=== PATIENT | male | born 1960 | race Two or more races ===

== ENCOUNTER 2016-11-01 21:44 | Emergency (ER) | payer MEDICAID ==
[~2016-11-01] VITALS: Ht 165.1 cm; Wt 65.8 kg
[2016-11-01 21:44] VITALS: BP 106/82
--- NOTE | 2016-11-01 21:53 | Emergency Room Report ---
History of Present Illness General Chief Complaint: Abnormal Labs Source: Patient, EMS Present Illness HPI Is a 56-year-old male with no past medical history. He has not seen a Dr. for many decades. He presents with chief complaint of weakness and dry mouth and shortness of breath. No nausea no vomiting. Been urinating frequently. Also with weight loss. Worse with exertion. Per family, he hasn't been eating solid for one week because of pain in his throat. No chest pain. Allergies: Coded Allergies: No Known Allergies (Unverified , 11/01/16) Patient History Past Medical History: none, see triage record, old chart reviewed Past Surgical History: none Pertinent Family History: none Social History: Denies: smoking Immunizations: other Reviewed Nursing Documentation: PMH: Agreed, PSxH: Agreed Nursing Documentation-PMH Past Medical History: No Stated History Review of Systems Constitutional: Reports: malaise, weakness Eye: Denies: blurred vision, eye pain ENT: Denies: ear pain, nose congestion, throat swelling Respiratory: Denies: cough, shortness of breath Cardiovascular: Denies: chest pain, palpitations Gastrointestinal: Denies: abdominal pain, diarrhea, nausea, vomiting Musculoskeletal: Denies: back pain, joint pain Skin: Denies: rash Neurological: Denies: headache, numbness Endocrine: Reports: increased thirst, increased urine, unexplained weight loss Hematologic/Lymphatic: Denies: easy bruising All Other Systems: negative except mentioned in HPI Physical Exam Vital Signs Date Time Temp Pulse Resp B/P Pulse Ox O2 Delivery O2 Flow Rate FiO2 11/01/16 21:35 99.1 106 20 106/82 98 Room Air vitals with tachycardia Sp02 EP Interpretation: reviewed, normal General Appearance: alert, moderate distress, thin Head: normocephalic, atraumatic Eyes: bilateral eye EOMI, bilateral eye PERRL ENT: hearing grossly normal, normal pharynx, dry mucus membranes, other - thrush Neck: full range of motion, supple, no meningismus Respiratory: chest non-tender, lungs clear, normal breath sounds Cardiovascular #1: regular rate, rhythm, no murmur Gastrointestinal: normal bowel sounds, non tender, no mass, no organomegaly, no bruit, non-distended Musculoskeletal: back normal, gait/station normal, normal range of motion Psychiatric: mood/affect normal Skin: warm/dry Procedures Critical Care Time Critical Care Time Critical care is mandated in this patient who presented with neck abscess and DKA. Patient require my urgent intervention to attenuate the risks of metabolic collapse which may lead to cardiovascular collapse and . Critical care time is 75 minutes excluding any reportable procedure. Critical care time included evaluation, multiple reevaluation, looking at old charts, interpreting laboratory and diagnostic data, discussing case with patient and family and consultants, and charting. Medical Decision Making Diagnostic Impression: Primary Impression: DKA (diabetic ketoacidoses) Qualified Codes: E13.10 - Other specified diabetes mellitus with ketoacidosis without coma Additional Impressions: Abscess of neck Dehydration, severe Proteinuria Qualified Codes: R80.9 - Proteinuria, unspecified ER Course Patient presents with severe acidosis. This is a combination of infection, dehydration and DKA. D5 solution started along with insulin drip. I also gave him Zosyn for infection. Because of the infection/abscess to the prevertebral space, I will attempt to transfer this patient to [facility] for higher level of care. Laboratory Tests Test 11/01/16 21:55 11/01/16 22:10 11/01/16 22:59 White Blood Count 27.3 K/UL (4.8-10.8) *H Red Blood Count 4.06 M/UL (4.70-6.10) L Hemoglobin 12.6 G/DL (14.2-18.0) L Hematocrit 37.0 % (42.0-52.0) L Mean Corpuscular Volume 91 FL (80-99) Mean Corpuscular Hemoglobin 31.1 PG (27.0-31.0) H Mean Corpuscular Hemoglobin Concent 34.1 G/DL (32.0-36.0) Red Cell Distribution Width 11.8 % (11.6-14.8) Platelet Count 553 K/UL (150-450) H Mean Platelet Volume 5.5 FL (6.5-10.1) L Neutrophils (%) (Auto) % (45.0-75.0) Lymphocytes (%) (Auto) % (20.0-45.0) Monocytes (%) (Auto) % (1.0-10.0) Eosinophils (%) (Auto) % (0.0-3.0) Basophils (%) (Auto) % (0.0-2.0) Differential Total Cells Counted 100 Neutrophils % (Manual) 87 % (45-75) H Lymphocytes % (Manual) 4 % (20-45) L Monocytes % (Manual) 4 % (1-10) Eosinophils % (Manual) 0 % (0-3) Basophils % (Manual) 0 % (0-2) Band Neutrophils 5 % (0-8) Toxic Granulation 1+ Platelet Estimate Increased H Platelet Morphology Normal Red Blood Cell Morphology Normal Urine Color Pale yellow Urine Appearance Slightly cloudy Urine pH 5 (4.5-8.0) Urine Specific [place] 1.020 (1.005-1.035) Urine Protein 2+ (NEGATIVE) H Urine Glucose (UA) 4+ (NEGATIVE) H Urine Ketones 4+ (NEGATIVE) H Urine Occult Blood 3+ (NEGATIVE) H Urine Nitrite Negative (NEGATIVE) Urine Bilirubin Negative (NEGATIVE) Urine Urobilinogen Normal MG/DL (0.0-1.0) Urine Leukocyte Esterase Negative (NEGATIVE) Urine RBC 0-2 /HPF (0 - 0) H Urine WBC 0-2 /HPF (0 - 0) Urine Squamous Epithelial Cells None /LPF (NONE/OCC) Urine Bacteria Few /HPF (NONE) Sodium Level 125 mEQ/L (135-145) L Potassium Level 3.6 mEQ/L (3.4-4.9) Chloride Level 89 mEQ/L (98-107) L Carbon Dioxide Level < 6 mEQ/L (20-30) *L Anion Gap 30 (5-15) H Blood Urea Nitrogen 12 mg/dL (7-23) Creatinine 1.0 mg/dL (0.7-1.2) Estimat Glomerular Filtration Rate > 60 mL/min (>60) Glucose Level 345 mg/dL (74-106) H Calcium Level 8.5 mg/dL (8.6-10.2) L Total Bilirubin 0.5 mg/dL (0.0-1.2) Aspartate Amino Transf (AST/SGOT) 12 U/L (5-40) Alanine Aminotransferase (ALT/SGPT) 8 U/L (3-41) Alkaline Phosphatase 131 U/L (40-129) H Troponin I < 0.30 ng/mL (<=0.30) Total Protein 8.3 g/dL (6.6-8.7) Albumin 3.1 g/dL (3.5-5.2) L Globulin 5.2 g/dL Albumin/Globulin Ratio 0.5 (1.0-2.7) L Urine Opiates Screen Negative (NEGATIVE) Urine Barbiturates Screen Negative (NEGATIVE) Phencyclidine (PCP) Screen Negative (NEGATIVE) Urine Amphetamines Screen Negative (NEGATIVE) Urine Benzodiazepines Screen Negative (NEGATIVE) Urine Cocaine Screen Negative (NEGATIVE) Urine Marijuana (THC) Screen Negative (NEGATIVE) HIV (1&2) Antibody Rapid Negative (NEGATIVE) Arterial Blood pH 7.090 (7.350-7.450) Arterial Blood Partial Pressure CO2 10.5 mmHg (35.0-45.0) *L Arterial Blood Partial Pressure O2 121.2 mmHg (75.0-100.0) H Arterial Blood HCO3 Pending Arterial Blood Oxygen Saturation 97.0 % (92.0-98.0) Arterial Blood Base Excess Pending [place] Test Positive Lab Results Impression labs with leukocytosis and severe acidosis EKG Diagnostic Results Rate: tachycardiac Rhythm: NSR ST Segments: no acute changes Rhythm Strip Diag. Results Rhythm Strip Time: 00:24 EP Interpretation: yes Rate: 94 Rhythm: NSR, no PVC's, no ectopy Chest X-Ray Diagnostic Results Chest X-Ray Diagnostic Results : Chest X-Ray Ordered: Yes # of Views/Limited/Complete: 1 View Indication: Shortness of Breath EP Interpretation: Yes Interpretation: no consolidation, no effusion, no pneumothorax, no acute cardiopulmonary disease Impression: No acute disease Interpreting ER Provider: Electronically signed by Zia Grewal MD CT/MRI/US Diagnostic Results CT/MRI/US Diagnostic Results : Imaging Test Ordered: CT neck Impression Read by radiologist. 4 point 2 x 2 by 8.3 cm abscess seen in the prevertebral space versus retropharyngeal space. There is edema. Airway is patent. There appears to be bony erosion of the anterior aspect of T5 and T6. Last Vital Signs Date Time Temp Pulse Resp B/P Pulse Ox O2 Delivery O2 Flow Rate FiO2 11/01/16 21:35 99.1 106 20 106/82 98 Room Air Status: improved Disposition: XFER SHT-TRM HOSP Condition: Critical ZIA GREWAL M.D. Nov 01, 2016 21:53
[2016-11-01] MEDS ORDERED: Sodium Bicarbonate 50ml Carp ONE (22:09)
[2016-11-01 22:13] LABS: MEAN CORPUSCULAR HEMOGLOBIN 31.1 PG (27.0-31.0); MEAN CORPUSCULAR HGB CONC 34.1 G/DL (32.0-36.0); MEAN CORPUSCULAR VOLUME 91 FL (80-99); MEAN PLATELET VOLUME 5.5 FL (6.5-10.1); PLATELET COUNT 553 K/UL (150-450); RED BLOOD COUNT 4.06 M/UL (4.70-6.10); RED CELL DISTRIBUTION WIDTH 11.8 % (11.6-14.8)
[2016-11-01 22:15] LABS: APPEARANCE,URINE SLIGHTLY CLOUDY; KETONES,URINE 4+ (NEGATIVE); LEUKOCYTE ESTERASE ,URINE NEGATIVE (NEGATIVE); NITRITE,URINE NEGATIVE (NEGATIVE); PH,URINE 5 (4.5-8.0); PROTEIN,URINE 2+ (NEGATIVE); UROBILINOGEN,URINE NORMAL MG/DL (0.0-1.0)
[2016-11-01 22:18] LABS: WHITE BLOOD COUNT 27.3 K/UL (4.8-10.8)
[2016-11-01 22:22] LABS: BACTERIA,URINE FEW /HPF; RBC,URINE 0-2 /HPF (0 - 0); WBC,URINE 0-2 /HPF (0 - 0)
[2016-11-01 22:38] LABS: TROPONIN I < 0.30 ng/mL (<=0.30)
[2016-11-01 22:39] LABS: ALANINE AMINOTRANSFERASE 8 U/L (3-41); ALBUMIN/GLOBULIN RATIO 0.5 (1.0-2.7); ASPARTATE AMINO TRANSFERASE 12 U/L (5-40); CALCIUM 8.5 mg/dL (8.6-10.2); CHLORIDE 89 mEQ/L (98-107); GLOMERULAR FILTRATION RATE > 60 mL/min (>60); HEMOLYSIS 3; POTASSIUM 3.6 mEQ/L (3.4-4.9); SODIUM 125 mEQ/L (135-145); TOTAL PROTEIN 8.3 g/dL (6.6-8.7)
[2016-11-01 22:44] LABS: ANION GAP 30 (5-15)
[2016-11-01 22:51] LABS: CARBON DIOXIDE < 6 mEQ/L (20-30)
[2016-11-01] MEDS ORDERED: D5 1/2NS w/KCl 20mEq 1,000 ML IV SCH (23:00)
[2016-11-01 23:17] LABS: BAND NEUTROPHILS % (MANUAL) 5 % (0-8); LYMPHOCYTES % (MANUAL) 4 % (20-45); NEUTROPHILS % (MANUAL) 87 % (45-75); TOTAL CELLS COUNTED 100
[2016-11-01 23:18] LABS: PLATELET MORPHOLOGY NORMAL
[2016-11-01 23:19] LABS: BASOPHILS % (MANUAL) 0 % (0-2); EOSINOPHILS % (MANUAL) 0 % (0-3); PLATELET ESTIMATE INCREASED; TOXIC GRANULATION 1+
[2016-11-01 23:44] VITALS: BP 128/86
[2016-11-01 23:46] LABS: ABG PCO2 10.5 mmHg (35.0-45.0)
[2016-11-01 23:48] LABS: ABG ALLEN TEST POSITIVE
[2016-11-01] MEDS ORDERED: NKM (23:48)
[2016-11-02] VITALS (15 sets, daily range): BP systolic 92–135; BP diastolic 59–82
[2016-11-02] MEDS ORDERED: Zosyn 3.375gm inj ONE ×2 (00:04→14:49)
[2016-11-02] MEDS ORDERED: Ketorolac 30mg Inj ONE (00:05)
[2016-11-02] MEDS ORDERED: Ketorolac 30mg Inj IV ONE (00:15)
[2016-11-02] MEDS ORDERED: Cephalexin 500mg cap ORAL ONE (02:00)
[2016-11-02 03:15] LABS: CALCIUM 7.9 mg/dL (8.6-10.2); CHLORIDE 102 mEQ/L (98-107); CREATININE 0.7 mg/dL (0.7-1.2); GLOMERULAR FILTRATION RATE > 60 mL/min (>60); HEMOLYSIS 50; POTASSIUM 3.2 mEQ/L (3.4-4.9); SODIUM 135 mEQ/L (135-145)
[2016-11-02 03:18] LABS: ANION GAP 23 (5-15); CARBON DIOXIDE 10 mEQ/L (20-30)
[2016-11-02] MEDS ORDERED: Vancomycin 1 GM in NS 275 ML IVPB ONE (04:00)
[2016-11-02] MEDS ORDERED: Vancomycin 1gm inj IVPB ONE (04:05)
[2016-11-02 05:41] LABS: ANION GAP 20 (5-15); CALCIUM 7.8 mg/dL (8.6-10.2); CARBON DIOXIDE 11 mEQ/L (20-30); CHLORIDE 104 mEQ/L (98-107); CREATININE 0.7 mg/dL (0.7-1.2); GLOMERULAR FILTRATION RATE > 60 mL/min (>60); HEMOLYSIS 0; SODIUM 135 mEQ/L (135-145)
[2016-11-02 05:47] LABS: POTASSIUM 2.7 mEQ/L (3.4-4.9)
--- NOTE | 2016-11-02 08:49 | Diagnostic Imaging Report ---
Indication: PAIN Technique: IV administration nonionic contrast Spiral acquisitions obtained through the neck Multiplanar reconstructions were generated. Total dose length product 451 mGycm. CTDIvol(s) 17 mGy. Radiation dose was minimized using automated exposure control Comparison: None Findings: Large complex multiloculated area of low attenuation is seen anterior to the cervical spine. This is primarily in the midline at the level of the upper cervical spine, to the left of midline at the level of the lower cervical and upper thoracic spine. This begins at the level of the lower nasopharynx, extends caudad into the upper mediastinum, terminating just below the thoracic inlet. Overall, this process measures approximately 3.3 cm AP by 3.4 cm transverse by about 17 cm craniocaudad. This appears to be primarily occupying the retropharyngeal space. However, is quite possible that some of the locules occupies the prevertebral space as well. This is notable in particular at the level in the cervical spine, where some of the locules appear to be intimately associated with the spine. Posterior to the nasopharynx and oropharynx, there appears to be 2 distinct areas, the more anterior of which is hypoattenuating, and posterior portion is more isoattenuating to muscle. There is mild peripheral rim enhancement. The main posterior locule appears to communicate over the entire length of the process. There is anterior displacement of the nasopharynx, oropharynx, hypopharynx, and to lesser extent the larynx. There is slight irregularity of the anterior aspect of the C5 and C6 vertebral bodies. This is probably due to degenerative change, but early osteomyelitis cannot be ruled out. No cervical mass or adenopathy is demonstrated. The included thyroid is unremarkable. There is minimal bilateral maxillary sinus disease. The dentition appears to be intact. The salivary glands are unremarkable. The arteries and veins appear to be patent. There is a calcified granuloma in the upper lobe of the right lung. Impression: Large multiloculated retropharyngeal abscess examining the upper mediastinum, as described above. This appears to primarily occupies the retropharyngeal space, although involvement of the prevertebral space is also possible. In addition, given slight irregularity of the anterior aspect of the C5 and C6 vertebral bodies which appear to be intimately associated with the abscess, the possibility of osteomyelitis should be considered and followup with cervical MRI is recommended. Other findings as noted, including evidence of old granulomatous disease within the right upper lobe This agrees with the preliminary interpretation provided overnight by [facility] telerad[facility] service. The CT scanner at [facility] is accredited by the [employer] and the scans are performed using protocols designed to limit radiation exposure to as low as reasonably achievable to attain images of sufficient resolution adequate for diagnostic evaluation.
[2016-11-02 09:30] LABS: ANION GAP 14 (5-15); CALCIUM 7.8 mg/dL (8.6-10.2); CARBON DIOXIDE 13 mEQ/L (20-30); CHLORIDE 104 mEQ/L (98-107); CREATININE 0.7 mg/dL (0.7-1.2); GLOMERULAR FILTRATION RATE > 60 mL/min (>60); HEMOLYSIS 2; SODIUM 131 mEQ/L (135-145)
[2016-11-02] MEDS: D5 1/2NS w/KCl 20mEq 1,000 ML IV SCH (11:49)
[2016-11-02] MEDS ORDERED: Piperacillin/Tazobactam 3.375 GM in NS 110 ML IVPB ONE ×3 (12:15)
--- NOTE | 2016-11-02 12:29 | Cardiology Report ---
APPROVED REPORT EKG Measurement Heart [id number] Sinus tachycardia Otherwise normal ECG
--- NOTE | 2016-11-02 13:38 | Diagnostic Imaging Report ---
Indication: Upper chest and neck pain Technique: One view of the chest Comparison: none Findings: Lungs and pleural spaces are clear. Heart size is normal. Impression: No acute process
[2016-11-02 14:55] LABS: ANION GAP 15 (5-15); CALCIUM 8.2 mg/dL (8.6-10.2); CARBON DIOXIDE 12 mEQ/L (20-30); CHLORIDE 105 mEQ/L (98-107); CREATININE 0.6 mg/dL (0.7-1.2); GLOMERULAR FILTRATION RATE > 60 mL/min (>60); HEMOLYSIS 1; POTASSIUM 2.9 mEQ/L (3.4-4.9); SODIUM 132 mEQ/L (135-145)
[2016-11-02] MEDS ORDERED: Morphine Sulfate 4mg/ml Inj IVP ONE (20:00)
[2016-11-02 20:16] LABS: ALANINE AMINOTRANSFERASE 9 U/L (3-41); ALBUMIN/GLOBULIN RATIO 0.5 (1.0-2.7); ANION GAP 20 (5-15); ASPARTATE AMINO TRANSFERASE 12 U/L (5-40); CALCIUM 8.5 mg/dL (8.6-10.2); CARBON DIOXIDE 11 mEQ/L (20-30); CHLORIDE 100 mEQ/L (98-107); CREATININE 0.7 mg/dL (0.7-1.2); GLOMERULAR FILTRATION RATE > 60 mL/min (>60); HEMOLYSIS 2; SODIUM 131 mEQ/L (135-145); TOTAL PROTEIN 7.5 g/dL (6.6-8.7)
[2016-11-02 22:05] LABS: MEAN CORPUSCULAR HEMOGLOBIN 30.6 PG (27.0-31.0); MEAN CORPUSCULAR HGB CONC 35.4 G/DL (32.0-36.0); MEAN CORPUSCULAR VOLUME 87 FL (80-99); MEAN PLATELET VOLUME 5.5 FL (6.5-10.1); PLATELET COUNT 520 K/UL (150-450); RED BLOOD COUNT 3.53 M/UL (4.70-6.10); RED CELL DISTRIBUTION WIDTH 11.2 % (11.6-14.8); WHITE BLOOD COUNT 19.2 K/UL (4.8-10.8)
[2016-11-02 22:25] LABS: ANION GAP 18 (5-15); CALCIUM 8.3 mg/dL (8.6-10.2); CARBON DIOXIDE 14 mEQ/L (20-30); CHLORIDE 104 mEQ/L (98-107); CREATININE 0.5 mg/dL (0.7-1.2); GLOMERULAR FILTRATION RATE > 60 mL/min (>60); HEMOLYSIS 0; SODIUM 136 mEQ/L (135-145)
[2016-11-02 23:13] LABS: BAND NEUTROPHILS % (MANUAL) 1 % (0-8); LYMPHOCYTES % (MANUAL) 6 % (20-45); NEUTROPHILS % (MANUAL) 89 % (45-75); TOTAL CELLS COUNTED 100
[2016-11-02 23:14] LABS: BASOPHILS % (MANUAL) 0 % (0-2); EOSINOPHILS % (MANUAL) 0 % (0-3); PLATELET ESTIMATE INCREASED
[2016-11-02 23:15] LABS: PLATELET MORPHOLOGY NORMAL
[2016-11-03] VITALS (12 sets, daily range): BP systolic 101–131; BP diastolic 65–95
[2016-11-03 00:11] LABS: CALCIUM 8.2 mg/dL (8.6-10.2); CARBON DIOXIDE 15 mEQ/L (20-30); CHLORIDE 107 mEQ/L (98-107); CREATININE 0.5 mg/dL (0.7-1.2); GLOMERULAR FILTRATION RATE > 60 mL/min (>60); HEMOLYSIS 0; SODIUM 135 mEQ/L (135-145)
[2016-11-03 00:17] LABS: ANION GAP 13 (5-15)
[2016-11-03 00:43] LABS: POTASSIUM 2.3 mEQ/L (3.4-4.9)
[2016-11-03] MEDS: D5 1/2NS w/KCl 20mEq 1,000 ML IV SCH (01:02)
[2016-11-03] MEDS ORDERED: Sodium Bicarbonate 50ml Carp IV ONE (03:15)
[2016-11-03 04:38] LABS: ANION GAP 15 (5-15); CALCIUM 8.6 mg/dL (8.6-10.2); CARBON DIOXIDE 20 mEQ/L (20-30); CHLORIDE 103 mEQ/L (98-107); CREATININE 0.4 mg/dL (0.7-1.2); GLOMERULAR FILTRATION RATE > 60 mL/min (>60); HEMOLYSIS 2; POTASSIUM 3.3 mEQ/L (3.4-4.9); SODIUM 138 mEQ/L (135-145)
[2016-11-03] MEDS ORDERED: Zosyn 3.375gm inj ONE ×2 (05:56→14:21)
[2016-11-03] MEDS ORDERED: Vancomycin 1 GM in NS 275 ML IVPB ONE (06:00)
[2016-11-03] MEDS ORDERED: Piperacillin/Tazobactam 3.375 GM in D5W 110 ML IVPB SCH (06:00)
[2016-11-03] MEDS ORDERED: Vancomycin 1gm inj IVPB ONE (06:41)
[2016-11-03] MEDS ORDERED: Piperacillin/Tazobactam 3.375 GM in NS 110 ML IVPB ONE (14:00)
[2016-11-03 19:15] LABS: ANION GAP 16 (5-15); CARBON DIOXIDE 19 mEQ/L (20-30); CHLORIDE 100 mEQ/L (98-107); CREATININE 0.5 mg/dL (0.7-1.2); GLOMERULAR FILTRATION RATE > 60 mL/min (>60); HEMOLYSIS 2; POTASSIUM 3.1 mEQ/L (3.4-4.9); SODIUM 135 mEQ/L (135-145)
[2016-11-03] MEDS ORDERED: Morphine Sulfate 4mg/ml Inj IVP ONE (20:00)
[2016-11-03] MEDS ORDERED: KCl 10% 40mEq/30ml liquid ORAL ONE (20:00)
--- NOTE | 2016-11-06 09:15 | Diagnostic Imaging Report ---
Indication: ABSCESS Technique: MRI the cervical spine performed utilizing sagittal T1 FLAIR, sagittal T2 FR FSE, sagittal STIR, axial T2 propeller, T1 fat-sat images before gadolinium and sagittal and axial T1 fast spin-echo images after gadolinium. Comparison: CT scan of the neck done 11/01/2016. Findings: Examination again demonstrates abnormal signal anterior to the cervical spine and extending from approximately C2-T3 into the mediastinum posteriorly. This appears to lie in the danger space. Narrowing of the C5-6 disc is noted with increased signal in the disc. There is also increased STIR signal within the C5 and C6 vertebral bodies. Abnormal signal extends into the spinal canal on the left and C3-C6. At C5 and C6 this spans the canal in its anterior portion and does compress the cord. Is angulation of the cervical spine at C5-6 as well and malalignment with retrolisthesis of C5 on C6. Abnormal signal is noted within the cord inferior to C6. The subarachnoid space is completely obliterated at C5-6 with compression of the cord. Following gadolinium infusion there is enhancement within the vertebral bodies and within the collection in the retropharyngeal/danger space. There is also enhancement of the dura the cervical spine as well as some enhancement in the collection in the spinal canal. There is also some increased STIR signal in the posterior aspect of C7. Impression: Retropharyngeal/danger space abnormal collection most consistent with abscess. Involvement of the C5 and C6 vertebral bodies and disc space consistent with osteomyelitis/discitis. Intraspinal extent with compression of the cord at C5-6. The abnormal material appears to extend as well to the level of C3 in the anterior left aspect of the canal. Abnormal signal within the cord caudal to C6, likely representing edema. Slight increased STIR signal in the posterior is aspect of C7. This may return reactive edema or developing involvement of this vertebral body with infection. Dr. Fowler in the emergency was notified by phone at the time of reading the patient is artery been transferred.
== END 2016-11-03 20:54 | disposition short-term general hospital (02) ==
LOC: EDBD 21:44 → EMR 22:08 → EDBEDREQ 22:59 → EMR 11-03 20:54
DX: E13.10 Other specified diabetes mellitus with ketoacidosis without coma (principal); J39.0 Retropharyngeal and parapharyngeal abscess; M86.8X8 Other osteomyelitis, other site; L02.11 Cutaneous abscess of neck; E86.0 Dehydration; R80.9 Proteinuria, unspecified; R63.4 Abnormal weight loss; R00.0 Tachycardia, unspecified
CPT/HCPCS: 36415; 36600; 51702; 70491; 71010; 72156; 80048; 80053; 80300; 81001; 82962; 83605; 84484; 85007; 85025; 86703; 87040; 87181; 93005; 96360; 96361; 96374; 96375; 99291; A9585; J1815; J1817; J1885; J2270; J2543; J3370; J3480; J7050; Q9967; J8499